=== PATIENT | male | born 1965 | race African-American/Black ===

== ENCOUNTER 2016-11-24 17:17 | Inpatient (IN) | payer OTHER ==
[~2016-11-24] VITALS: Ht 171.4 cm; Wt 81.4 kg
--- NOTE | ~2016-11-24 | EKG ---
[place], [place] ELECTROCARDIOGRAM REPORT NAME: NANNETTE HUBER UNIT #: [id number] ROOM: [id number] DOCTOR: SZUAN GRACE MD BIRTHDATE: [birth year] DOS: 11/24/2016 TIME: 2040 hours. FINDINGS: 1. Normal sinus rhythm at rate of 76. 2. Normal electrocardiogram. SUZAN GRACE MD CM:EKGRPT:ELECTROCARDIOGRAM REPORT [id number] SUZAN GRACE MD
[2016-11-24 17:23] VITALS: BP 186/102
[2016-11-24 17:49] LABS: BASO % 0.3 % (0.0-1.0); EOS # 0.1 10*3/uL (0.0-0.4); EOS % 1.2 % (1.0-4.0); HEMATOCRIT 43.3 % (42.0-52.0); HEMOGLOBIN 15.3 g/dl (14.0-18.0); LYMPH # 3.5 10*3/uL (1.3-4.4); LYMPH % 39.4 % (27.0-41.0); MEAN CELL VOLUME 99.8 fl (80.0-94.0); MEAN CORPUSCULAR HGB 35.3 pg (27.0-31.0); MEAN CORPUSCULAR HGB CONC 35.3 g/dl (33.0-37.0); MEAN PLATELET VOLUME 9.8 fl (9.6-12.3); MONO # 0.7 10*3/uL (0.1-1.0); MONO % 8.1 % (3.0-9.0); NEUT # 4.5 10*3/uL (2.3-7.9); NEUT % 50.7 % (47.0-73.0); PLATELET COUNT AUTOMATED 116 10*3/uL (130-400); RED BLOOD COUNT 4.34 10*6/uL (4.50-5.90); RED CELL DISTRI WIDTH 15.6 % (0-14.5); WHITE BLOOD COUNT 8.9 10*3/uL (4.8-10.8)
[2016-11-24 18:01] LABS: URINE AMPHETAMINES < 1000 (1000ng/ml); URINE BARBITURATES < 200 (200ng/ml); URINE COCAINE > 300 (300ng/ml)
[2016-11-24 18:06] LABS: BILIRUBIN NEGATIVE (NEGATIVE); BLOOD NEGATIVE (NEGATIVE); CLARITY SL CLOUDY (CLEAR); COLOR YELLOW (YELLOW); GLUCOSE NEGATIVE (NEGATIVE); KETONE NEGATIVE (NEGATIVE); LEUKO ESTERASE 1+ (NEGATIVE); NITRITE NEGATIVE (NEGATIVE); PH 5.5 (5.0-9.0); PROTEIN NEGATIVE (NEGATIVE); SPECIFIC GRAVITY 1.025 (1.005-1.030); UROBILINOGEN 0.2 E.U./dl (0.2-1.0)
[2016-11-24 18:07] LABS: ALBUMIN 3.9 gm/dl (3.1-4.5); ALKALINE PHOSPHATASE 93 U/L (45-117); BILIRUBIN, TOTAL 0.4 mg/dl (0.2-1.0); BUN 12 mg/dl (7-24); CARBON DIOXIDE 23 mmol/L (21-32); CHLORIDE 105 mmol/L (98-107); EST GLOM FILT AFRICAN AMERICAN > 60 ml/min; GLUCOSE 92 mg/dL (65-99); POTASSIUM 4.1 mmol/L (3.5-5.1); SGOT/AST 74 IU/L (3-35); SGPT/ALT 73 U/L (12-78); SODIUM 138 mmol/L (136-145); TOTAL PROTEIN 8.7 gm/dL (6.4-8.2)
[2016-11-24 18:12] LABS: BACTERIA 2+; MUCOUS TRACE; URINE REFLEX COMMENT YES (NO); WBC 16-20 wbc/hpf (0-5)
[2016-11-24 18:14] VITALS: BP 132/82
[2016-11-24 20:00] VITALS: BP 123/82
[2016-11-25] VITALS (7 sets, daily range): BP systolic 116–160; BP diastolic 56–100
[2016-11-26] VITALS: BP 116/70
[2016-11-26 08:00] VITALS: BP 149/72
[2016-11-26 12:00] VITALS: BP 126/80
[2016-11-26 16:23] VITALS: BP 119/87
[2016-11-26 20:00] VITALS: BP 157/83
[2016-11-27] VITALS: BP 109/60
[2016-11-27 07:01] LABS: HEMATOCRIT 43.9 % (42.0-52.0); HEMOGLOBIN 15.3 g/dl (14.0-18.0); MEAN CELL VOLUME 101.6 fl (80.0-94.0); MEAN CORPUSCULAR HGB 35.4 pg (27.0-31.0); MEAN CORPUSCULAR HGB CONC 34.9 g/dl (33.0-37.0); PLATELET COUNT AUTOMATED 129 10*3/uL (130-400); RED BLOOD COUNT 4.32 10*6/uL (4.50-5.90); RED CELL DISTRI WIDTH 15.3 % (0-14.5); WHITE BLOOD COUNT 7.4 10*3/uL (4.8-10.8)
[2016-11-27 07:02] LABS: BASO % 0.4 % (0.0-1.0); EOS # 0.2 10*3/uL (0.0-0.4); EOS % 2.3 % (1.0-4.0); LYMPH % 26.7 % (27.0-41.0); MEAN PLATELET VOLUME 9.9 fl (9.6-12.3); MONO # 0.7 10*3/uL (0.1-1.0); MONO % 9.6 % (3.0-9.0); NEUT # 4.5 10*3/uL (2.3-7.9); NEUT % 60.7 % (47.0-73.0); NUCLEATED RED BLOOD CELL 0.4 % (0.0-0.0)
[2016-11-27 07:34] LABS: EST GLOM FILT AFRICAN AMERICAN > 60 ml/min
[2016-11-27 08:00] VITALS: BP 112/67
[2016-11-27] MEDS ORDERED: NATURE'S BLEND F1 MG PO (11:04)
[2016-11-27] MEDS ORDERED: THERA TABS1 TAB PO (11:04)
[2016-11-27] MEDS ORDERED: VITAMIN B-11 TAB PO (11:04)
[2016-11-27 12:00] VITALS: BP 114/66
== END 2016-11-27 12:23 | disposition home or self-care (01) | DRG 897 ==
LOC: ED 17:17 → 4E 17:48 → EDHOLD 17:48 → 4E 18:11
PROVIDERS: Internal Medicine; Physician Assistant
DX: F10.232 Alcohol dependence with withdrawal with perceptual disturbance (principal); F14.90 Cocaine use, unspecified, uncomplicated; D69.6 Thrombocytopenia, unspecified; I16.0 Hypertensive urgency; M54.31 Sciatica, right side; F12.90 Cannabis use, unspecified, uncomplicated; F17.210 Nicotine dependence, cigarettes, uncomplicated; F19.10 Other psychoactive substance abuse, uncomplicated; E83.51 Hypocalcemia; M54.6 Pain in thoracic spine; M25.511 Pain in right shoulder; Z80.9 Family history of malignant neoplasm, unspecified; Z80.3 Family history of malignant neoplasm of breast; Z71.6 Tobacco abuse counseling